=== PATIENT | male | born 1945 | race Caucasian/White ===

== ENCOUNTER 2020-02-08 22:14 | Inpatient (IN) | payer MEDICARE, BC ==
[~2020-02-08] VITALS: Ht 167.6 cm; Wt 80.7 kg
[2020-02-08 23:23] VITALS: BP 142/68
[2020-02-08] MEDS ORDERED: FINA5TAB11 PO (23:25)
[2020-02-08] MEDS ORDERED: SIMV-49 PO (23:25)
[2020-02-08] MEDS ORDERED: CARV12.52 PO (23:25)
[2020-02-08] MEDS ORDERED: ALLO300T2 PO (23:25)
[2020-02-08] MEDS ORDERED: OLME20TA13 PO (23:25)
[2020-02-08] MEDS ORDERED: DONE10TA44 PO (23:25)
[2020-02-08] MEDS ORDERED: ENOX40DI SQ (23:25)
[2020-02-08] MEDS ORDERED: TERA5CAP4 PO (23:25)
[2020-02-08] MEDS ORDERED: WARF7.5T23 PO (23:25)
[2020-02-08] MEDS ORDERED: POTA10CA43 PO (23:25)
[2020-02-08] MEDS ORDERED: FURO-151 PO (23:25)
[2020-02-08] MEDS ORDERED: LEVO50TA8 PO (23:25)
[2020-02-08] MEDS ORDERED: ESOM40CA PO (23:25)
[2020-02-08] MEDS ORDERED: ALPR1TAB7 PO (23:25)
[2020-02-08] MEDS ORDERED: [UNRECOGNIZED DRUG - CODE] PO (23:25)
--- NOTE | 2020-02-08 23:30 | NUR ---
Pt arrived in the unit at 2106 via gurney from [facility]. VSS. AAO x3-4. Admitting diagnosis: TIA, gen weakness. On 2L O2 via NC. No acute distress noted. Denies pain/ discomfort. Facial droop and slurred speech noted. NIHSS done. Pertinent assessment done. Skin intact. No redness noted. MRSA sent to the lab. Pt has own med, will bring to pharmacy tomorrow morning. Oriented pt to the room and use of call light. Notified Dr. Fregoso of admission. Dr. Solis also notified and asked for med recon, awaiting med recon. Safety measures maintained. Call light and personal items within reach. Will continue to monitor.
[2020-02-09 05:27] VITALS: BP 124/71
[2020-02-09 08:00] VITALS: BP 145/67
--- NOTE | 2020-02-09 13:28 | NUR ---
INDIVIDUALIZED PLAN OF CARE
[2020-02-09 14:52] LABS: BASOPHILS % (AUTO) 0.4 % (0.0-2.0); EOSINOPHILS % (AUTO) 0.4 % (0.0-7.0); HEMOGLOBIN 10.6 g/dL (12.5-16.3); LYMPHOCYTES # (AUTO) 1.1 K/uL (20.0-40.0); LYMPHOCYTES % (AUTO) 12.1 % (20.5-51.5); MEAN CORPUSCULAR HEMOGLOBIN 27.2 uug (23.8-33.4); MEAN CORPUSCULAR HGB CONC 31 g/dL (32.5-36.3); MEAN CORPUSCULAR VOLUME 87.1 fL (73.0-96.2); MONOCYTES # (AUTO) 1.2 K/uL (2.0-10.0); NEUTROPHILS # (AUTO) 6.8 K/uL (1.8-8.9); NEUTROPHILS % (AUTO) 74.1 % (38.5-71.5); PLATELET COUNT (AUTO) 251 K/uL (152-348); WHITE BLOOD COUNT (AUTO) 9.1 K/uL (3.6-10.2)
[2020-02-09 16:00] VITALS: BP 118/61
[2020-02-09] MEDS: CARVEDILOL 12.5 MG TABLET PO SCH (17:11)
[2020-02-09] MEDS: FUROSEMIDE 40 MG TABLET PO SCH (17:12)
[2020-02-09] MEDS: TERAZOSIN 5 MG CAPSULE PO SCH (17:12)
[2020-02-09] MEDS: POTASSIUM CHLORIDE 10 MEQ TAB.PRT.SR PO SCH (17:12)
[2020-02-09 20:17] VITALS: BP 120/60
[2020-02-09] MEDS: ALPRAZOLAM 0.5 MG TABLET PO PRN (20:49)
--- NOTE | 2020-02-09 20:55 | NUR ---
Received pt resting in bed. AAO x3-4. On 2L O2 via NC. No acute distress noted. Denies pain/ discomfort. Due meds given as ordered. Pt requested for his Xanax, given and pt tolerated well. Turned and repositioned. Both heels offloaded. Safety measures maintained. Call light and personal items within reach. Will continue to monitor.
[2020-02-09] MEDS ORDERED: ENOXAPARIN SODIUM 40 MG/0.4 ML DISP.SYRIN SQ SCH (21:00)
[2020-02-09] MEDS ORDERED: SIMVASTATIN 40 MG TABLET PO SCH (21:00)
[2020-02-10] MEDS: ALPRAZOLAM 0.5 MG TABLET PO PRN (01:21)
[2020-02-10 06:14] LABS: BASOPHILS % (AUTO) 0.4 % (0.0-2.0); EOSINOPHILS # (AUTO) 0.1 K/uL (0.0-0.7); EOSINOPHILS % (AUTO) 1.4 % (0.0-7.0); HEMATOCRIT 32.8 % (36.7-47.1); HEMOGLOBIN 10.5 g/dL (12.5-16.3); LYMPHOCYTES % (AUTO) 12.4 % (20.5-51.5); MEAN CORPUSCULAR HEMOGLOBIN 27.6 uug (23.8-33.4); MEAN CORPUSCULAR HGB CONC 32 g/dL (32.5-36.3); MEAN CORPUSCULAR VOLUME 86.5 fL (73.0-96.2); MONOCYTES # (AUTO) 1.1 K/uL (2.0-10.0); MONOCYTES % (AUTO) 13.4 % (0.0-11.0); NEUTROPHILS # (AUTO) 5.7 K/uL (1.8-8.9); NEUTROPHILS % (AUTO) 72.4 % (38.5-71.5); PLATELET COUNT (AUTO) 234 K/uL (152-348); RED BLOOD CELL COUNT(AUTO) 3.79 MIL/uL (4.06-5.63); WHITE BLOOD COUNT (AUTO) 7.8 K/uL (3.6-10.2)
[2020-02-10 06:26] LABS: CREATININE 0.8 mg/dL (0.6-1.3); POTASSIUM 3.6 mmol/L (3.5-5.1)
[2020-02-10 06:29] LABS: IRON, SERUM 33 ug/dL (50-175)
[2020-02-10 06:41] VITALS: BP 130/48
[2020-02-10 06:41] LABS: FERRITIN 402 ng/mL (26-388)
[2020-02-10 08:00] VITALS: BP 137/69
--- NOTE | 2020-02-10 08:10 | NUR ---
Received patient in room, awake patient was being transferred to radiobiology for bone scan. patient AAO x 3-4, with episodes of forgetfulness. on O2NC at 2lpm for SOB. Patient assisted to w/c and left to radiology.
[2020-02-10] MEDS ORDERED: WARFARIN SODIUM 7.5 MG TABLET PO SCH (09:00)
[2020-02-10] MEDS ORDERED: DONEPEZIL 10 MG TABLET PO SCH (09:00)
[2020-02-10] MEDS ORDERED: LEVOTHYROXINE SODIUM 50 MCG TABLET PO SCH (09:00)
[2020-02-10] MEDS ORDERED: ALLOPURINOL 300 MG TABLET PO SCH (09:00)
[2020-02-10] MEDS ORDERED: FINASTERIDE 5 MG TABLET PO SCH (09:00)
[2020-02-10] MEDS: CARVEDILOL 12.5 MG TABLET PO SCH (09:00)
[2020-02-10] MEDS ORDERED: LOSARTAN POTASSIUM 50 MG TABLET PO SCH (09:00)
[2020-02-10] MEDS ORDERED: ENOXAPARIN SODIUM 80 MG/0.8 ML DISP.SYRIN SQ SCH (09:00)
[2020-02-10] MEDS ORDERED: VENLAFAXINE XR 37.5 MG CAP.SR.24H PO SCH (09:00)
[2020-02-10] MEDS ORDERED: PANTOPRAZOLE SODIUM 40 MG TABLET.DR PO SCH (09:00)
[2020-02-10] MEDS ORDERED: ACETAMINOPHEN 325 MG TABLET PO PRN (09:45)
[2020-02-10] MEDS: FUROSEMIDE 40 MG TABLET PO SCH (09:56)
[2020-02-10] MEDS: TERAZOSIN 5 MG CAPSULE PO SCH (10:01)
[2020-02-10] MEDS: POTASSIUM CHLORIDE 10 MEQ TAB.PRT.SR PO SCH (10:02)
[2020-02-10 10:04] VITALS: BP 137/69
--- NOTE | 2020-02-10 10:10 | NUR ---
Patient administered Lasix 40mg PO as ordered and scheduled and Tylenol 650mg 2 tabs PRN for generalized pain and tolerated.
--- NOTE | 2020-02-10 10:15 | NUR ---
patient stated he was feeling short of breath after getting back from procedure. Patient noted using his accessory muscles when breathing. Checked O2 and 96-97% at 2lpm but patient still complained of SOB; denies any chest pain. Informed Vanessa Craig NP and COUNTY NURSE stated patient will be seen by Dr. Lo. Patient monitored closely and safety measures in place.
--- NOTE | 2020-02-10 10:20 | NUR ---
Patient seen by Dr. Lo and with an order to place patient as TELE. ARTIFICIAL LIMB FITTER and RN fish processing supervisor aware.
[2020-02-10] MEDS ORDERED: FUROSEMIDE 40 MG/4 ML VIAL IV ONE (11:00)
--- NOTE | 2020-02-10 12:37 | NUR ---
Patient in bed and in NO acute distress. Patient stated he is feeling much better after receiving IV Lasix as ordered. Patient noted with 750cc clear urine output. NO c/o pain and SOB at this time. Vital signs stable and will continue with care.
--- NOTE | 2020-02-10 12:51 | NUR ---
pt in higher level of care at this time from ARU to TELE, PT tx on HOLD.
[2020-02-10] MEDS ORDERED: FURO-151 IV ×2 (16:03→16:07)
[2020-02-10] MEDS ORDERED: LOSA50TA39 PO (16:08)
[2020-02-10] MEDS ORDERED: PANT40TA2 PO (16:11)
[2020-02-10] MEDS ORDERED: FUROSEMIDE 40 MG/4 ML VIAL IV SCH (17:00)
[2020-02-11] MEDS ORDERED: LOSARTAN POTASSIUM 50 MG TABLET PO SCH (09:00)
[2020-02-11 09:27] LABS: *OCCULT BLOOD STOOL NEGATIVE (NEGATIVE)
--- NOTE | 2020-02-11 14:51 | NUR ---
SW Note: Spoke with Charge Nurse Cassie regarding psychiatry consultation, however, was informed that the patient was transferred to CCU at this time. SW will continue to follow up with patient's status.
[2020-02-17] MEDS ORDERED: HYDR-4384 PO (09:30)
[2020-02-17] MEDS ORDERED: FLUO20CA36 PO (09:38)
== END 2020-02-10 12:40 | disposition short-term general hospital (02) | DRG 56 ==
LOC: TELE3 22:14 → UNDOADMIN 22:14 → MEDSURG3 22:14
PROVIDERS: ADMIT Physical Medicine & Rehabilitation Pain Medicine; ATTEND Physical Medicine & Rehabilitation Pain Medicine
DX: I69.828 Other speech and language deficits following other cerebrovascular disease (principal); J96.00 Acute respiratory failure, unspecified whether with hypoxia or hypercapnia; I50.33 Acute on chronic diastolic (congestive) heart failure; C81.90 Hodgkin lymphoma, unspecified, unspecified site; I48.92 Unspecified atrial flutter; I69.892 Facial weakness following other cerebrovascular disease; G93.89 Other specified disorders of brain; R53.1 Weakness; Z85.118 Personal history of other malignant neoplasm of bronchus and lung; D63.8 Anemia in other chronic diseases classified elsewhere; E03.9 Hypothyroidism, unspecified; E66.9 Obesity, unspecified; I48.0 Paroxysmal atrial fibrillation; E78.5 Hyperlipidemia, unspecified; G47.33 Obstructive sleep apnea (adult) (pediatric); I05.0 Rheumatic mitral stenosis; I11.0 Hypertensive heart disease with heart failure; I25.10 Atherosclerotic heart disease of native coronary artery without angina pectoris; K21.9 Gastro-esophageal reflux disease without esophagitis; K44.9 Diaphragmatic hernia without obstruction or gangrene; K76.9 Liver disease, unspecified; N20.0 Calculus of kidney; N40.0 Benign prostatic hyperplasia without lower urinary tract symptoms; Z95.1 Presence of aortocoronary bypass graft; Z95.3 Presence of xenogenic heart valve; Z95.5 Presence of coronary angioplasty implant and graft
CPT/HCPCS: 36415; 71045; 78306; 83550; 85025; 85610; 85730; 93005; 93307; A9503; J1650; J1940; J7050

== ENCOUNTER 2020-02-10 12:19 | Inpatient (IN) | payer MEDICARE, BC ==
[~2020-02-10] VITALS: Ht 170.2 cm; Wt 78.5 kg
[~2020-02-10 12:19] MED LIST: ALLO300T2 PO; ALPR1TAB7 PO; CARV12.52 PO; DONE10TA44 PO; ENOX40DI SQ; ESOM40CA PO; FINA5TAB11 PO; FURO-151 PO; LEVO50TA8 PO; OLME20TA13 PO; POTA10CA43 PO; SIMV-49 PO; TERA5CAP4 PO; WARF7.5T23 PO; [UNRECOGNIZED DRUG - CODE] PO
--- NOTE | 2020-02-10 14:45 | NUR ---
Admitted 74 year old male patient from ARU. Pt. is AAO X 3-4, no sob noted at this time. patient on TELE monitor. Vital signs stable at this time. O2 saturation of 95% on O2 NC at 2lpm. Skin kept clean and dry. Needs attended, safety measures in place and will continue with care.
[2020-02-10] MEDS ORDERED: FURO-151 IV ×2 (16:03→16:07)
[2020-02-10] MEDS ORDERED: LOSA50TA39 PO (16:08)
[2020-02-10] MEDS ORDERED: PANT40TA2 PO (16:11)
[2020-02-10] MEDS: FUROSEMIDE 40 MG/4 ML VIAL IV SCH (17:52)
--- NOTE | 2020-02-10 18:56 | NUR ---
Medications reconciled by Dr. Solis. Due medications administered. IV Lasix administered as ordered. PICC line on right upper arm with 3 lumens intact and patent. NO SOB noted at this time. Monitored closely. Skin kept clean and dry, made comfortable and will continue with care.
--- NOTE | 2020-02-10 19:30 | NUR ---
RECEIVED PT IN NO ACUTE DISTRESS. IV INTACT. PT ON 2L NASAL CANNULA. SAFETY AND COMFORT PROVIDED. WILL CONTINUE TO MONITOR.
--- NOTE | 2020-02-10 19:45 | NUR ---
End of shift report given to pm nurse.
[2020-02-10 20:13] VITALS: BP 100/64
[2020-02-10] MEDS: ALPRAZOLAM 0.5 MG TABLET PO PRN (20:49)
[2020-02-10] MEDS: SIMVASTATIN 40 MG TABLET PO SCH (20:49)
[2020-02-10] MEDS: ENOXAPARIN SODIUM 80 MG/0.8 ML DISP.SYRIN SQ SCH (20:51)
[2020-02-10] MEDS: TERAZOSIN 5 MG CAPSULE PO SCH (20:59)
--- NOTE | 2020-02-10 22:00 | NUR ---
PT DAUGHTER FAX THE ADVANCE DIRECTIVE. CALLED THE PT DAUGHTER TO UPDATE HER THAT WE RECEIVED IT.
[2020-02-11] VITALS (45 sets, daily range): BP systolic 72–132; BP diastolic 35–89
[2020-02-11] MEDS: ACETAMINOPHEN 325 MG TABLET PO PRN ×2 (05:10→19:42)
--- NOTE | 2020-02-11 05:58 | NUR ---
PT SLEPT INTERMITTENTLY. PT IN NO ACUTE DISTRESS. IV INTACT. PRESCRIBED MEDICATION GIVEN AND PT TOLERATED IT WELL. XANAX PRN GIVEN [id number] FOR ANXIETY PER PT REQUEST. PT TOLERATED IT WELL. AT FIRST PT ASK FOR XANAX REACCESS THE PT AND TOLD HIM HE CAN ONLY THE XANAX TWICE A DAY. PT NOT FEEL ANXIOUS. RETURN THE TIGIST TO RETURN BIN WITH ANOTHER RN WITNESS. PT ASK FOR TYLENOL. GIVEN TYLENOL AT 0510. PT TOLERATED IT WELL. TOOK BLOOD FROM PICC LINE. 2 LUMEN WORKING WELL, PURPLE LUMEN NOT WORKING. SAFETY AND COMFORT PROVIDED. ALL NEEDS ARE MET. WILL ENDORSE TO INCOMING NURSE FOR CONTINUITY OF CARE.
[2020-02-11 06:34] LABS: BASOPHILS % (AUTO) 0.5 % (0.0-2.0); EOSINOPHILS # (AUTO) 0.1 K/uL (0.0-0.7); EOSINOPHILS % (AUTO) 1.8 % (0.0-7.0); HEMATOCRIT 33.2 % (36.7-47.1); HEMOGLOBIN 10.5 g/dL (12.5-16.3); LYMPHOCYTES # (AUTO) 0.9 K/uL (20.0-40.0); MEAN CORPUSCULAR HEMOGLOBIN 27.4 uug (23.8-33.4); MEAN CORPUSCULAR HGB CONC 32 g/dL (32.5-36.3); MEAN CORPUSCULAR VOLUME 86.4 fL (73.0-96.2); MONOCYTES % (AUTO) 13.1 % (0.0-11.0); NEUTROPHILS # (AUTO) 5.4 K/uL (1.8-8.9); NEUTROPHILS % (AUTO) 72.6 % (38.5-71.5); PLATELET COUNT (AUTO) 209 K/uL (152-348); RED BLOOD CELL COUNT(AUTO) 3.84 MIL/uL (4.06-5.63); WHITE BLOOD COUNT (AUTO) 7.4 K/uL (3.6-10.2)
[2020-02-11] MEDS: LEVOTHYROXINE SODIUM 50 MCG TABLET PO SCH (06:36)
[2020-02-11 06:54] LABS: BILIRUBIN,TOTAL 0.6 mg/dL (0.2-1.0); CREATININE 0.9 mg/dL (0.6-1.3); PHOSPHOROUS 2.7 mg/dL (2.5-4.9); POTASSIUM 3.2 mmol/L (3.5-5.1); TOTAL PROTEIN, SERUM 6.3 g/dL (6.4-8.2); URIC ACID 2.8 mg/dL (3.5-7.2)
--- NOTE | 2020-02-11 07:30 | NUR ---
CALLED CIA AGENT REGARDING CRITICAL LAB OF CO2=40. WAITING FOR CALL BACK. ENDORSE TO INCOMING NURSE.
--- NOTE | 2020-02-11 07:41 | NUR ---
Spoke to Mal Wynne NP for critical result CO2 - 40. No new orders, will come and see patient.
[2020-02-11] MEDS ORDERED: LOSARTAN POTASSIUM 50 MG TABLET PO SCH (09:00)
[2020-02-11] MEDS ORDERED: CARVEDILOL 12.5 MG TABLET PO SCH (09:00)
[2020-02-11 09:01] LABS: THYROID STIMULATING HORMONE 2.795 mIU/mL (0.358-3.740)
[2020-02-11] MEDS: TERAZOSIN 5 MG CAPSULE PO SCH ×2 (09:06→21:06)
[2020-02-11] MEDS: POTASSIUM CHLORIDE 10 MEQ TAB.PRT.SR PO SCH ×2 (09:06→17:30)
[2020-02-11] MEDS: PANTOPRAZOLE SODIUM 40 MG TABLET.DR PO SCH (09:08)
[2020-02-11] MEDS: FINASTERIDE 5 MG TABLET PO SCH (09:08)
[2020-02-11] MEDS: DONEPEZIL 10 MG TABLET PO SCH (09:09)
[2020-02-11] MEDS: ENOXAPARIN SODIUM 80 MG/0.8 ML DISP.SYRIN SQ SCH ×2 (09:12→21:06)
[2020-02-11] MEDS: FUROSEMIDE 40 MG/4 ML VIAL IV SCH (09:12)
[2020-02-11] MEDS: VENLAFAXINE XR 37.5 MG CAP.SR.24H PO SCH (09:12)
[2020-02-11] MEDS ORDERED: ATROPINE SULFATE 1 MG/10 ML DISP.SYRIN IV ONE ×2 (11:49→14:45)
--- NOTE | 2020-02-11 13:11 | NUR ---
Pt's HR decreased to 40, pt asleep. Tried to wake pt up but still somnolent and would go back to sleep. Checked BP- 74/39. Placed pt on trendelenburg position. Monitored patient.
--- NOTE | 2020-02-11 13:24 | NUR ---
Called Dr. Lo and updated on pt's persistent low Bp and HR. Ordered to give IV NS 250mL bolus.
[2020-02-11] MEDS ORDERED: IV NORMAL SALINE 250 ML IV ONE ×2 (13:30→14:45)
--- NOTE | 2020-02-11 13:40 | NUR ---
Pt's BP and HR remained to be low and pt still somnolent. INTER COM INSTALLER called
--- NOTE | 2020-02-11 14:10 | NUR ---
IV NS 250mL bolus done. Rechecked v/s. BP 92/48, HR 51
--- NOTE | 2020-02-11 14:45 | NUR ---
Dr. Lo at bedside for assessment. Updates given. MD ordered atropine IV x1 dose now, another 250 mL NS bolus, transfer to CCU and start dopamine drip to keep HR >55 or SBP >100, see orders.
--- NOTE | 2020-02-11 15:00 | NUR ---
Pt's BP improved 113/59, HR 57 after atropine administration but HR remained low. Dr. Lo at bedside ordered to transfer to CCU. Pt stated that he feels tired and he still appears somnolent. Report given to Whitney Grider RN.
--- NOTE | 2020-02-11 15:00 | NUR ---
RECIEVED PT FROM TELEMETRY VIA BED, A 76YO MALE WITH A CHIEF C/O HYPOTENSION AND BRADYCARDIA. AWAKE AND ORIENTEDX3. DENIES ANY CHEST PAINS. HR IS AFIB AFLUTTER WITN CONTROLLED VR. MOVES ALL EXPTRMETIES WELLLL.
[2020-02-11 15:11] LABS: ABG BASE EXCESS 13.4 mmol/L; ABG HCO3 39.2 mmol/L; ABG PH 7.463 (7.350-7.450); ABG PO2 116.3 mmHg (75.0-100.0); ABG SITE LEFT RADIAL; ABG TOTAL HEMOGLOBIN 11.3 G/dL (13.5-18.0); COHb 1.1 % (0.5-1.5); MetHb 0.3 % (0.0-1.5); O2Hb 97.2 % (94.0-97.0); VENT MODE Nasal Cannula
--- NOTE | 2020-02-11 15:30 | NUR ---
STARTED DOPAMINE DRIP AT 5MCK/KG/MIN TO INCREASE HR AND BP VIA PICC LINE JESSENIA.
[2020-02-11] MEDS: DOPamine IV DRIP 400 MG/250ML 250 ML IV PRN (15:36)
[2020-02-11] MEDS: POTASSIUM CHLORIDE 50 ML IV SCH ×4 (16:29→20:23)
--- NOTE | 2020-02-11 17:30 | NUR ---
SEEN AND EXAMINED BY DR ANDRADE WITH NEW ORDERS.
[2020-02-11] MEDS: WARFARIN SODIUM 7.5 MG TABLET PO SCH (17:33)
[2020-02-11] MEDS: ALPRAZOLAM 0.5 MG TABLET PO PRN (19:37)
--- NOTE | 2020-02-11 20:00 | NUR ---
RECEIVED PT AWAKE, ALERT & ORIENTED X3. ON O2 @ 2LNC W/ O2 SAT OF 96%. ON DOPAMINE DRIP @ 3MCQ/KG/MIN ON JESSENIA TLC. BP IS LOW 78/51, INCREASED DOPAMINE DRIP TO 5MCQ/KG/MIN. VOIDING USES URINAL ADEQ. AMT. C-SCOPE A-FLUTTER 2:1 BLOCK. REPOSITIONED ON HIS SIDE W/ HOB ELEVATED.
[2020-02-11] MEDS ORDERED: SIMVASTATIN 40 MG TABLET ONE (21:01)
[2020-02-11] MEDS ORDERED: TERAZOSIN 5 MG CAPSULE ONE (21:01)
[2020-02-11] MEDS: SIMVASTATIN 40 MG TABLET PO SCH (21:06)
[2020-02-11] MEDS: ONDANSETRON 4 MG/2 ML VIAL IV PRN (21:46)
--- NOTE | 2020-02-11 21:46 | NUR ---
C/O NAUSEA, MEDICATED W/ ZOFRAN 4MG IVP ORDERED.
--- NOTE | 2020-02-11 23:00 | NUR ---
HS CARE DONE, BEDBATH . REPOSITIONED PT ON HIS SIDE W/ HOB ELEVATED.
[2020-02-12] VITALS (89 sets, daily range): BP systolic 80–145; BP diastolic 35–78
[2020-02-12] MEDS: ACETAMINOPHEN 325 MG TABLET PO PRN ×3 (01:37→20:08)
[2020-02-12 05:07] LABS: BASOPHILS % (AUTO) 0.6 % (0.0-2.0); EOSINOPHILS # (AUTO) 0.1 K/uL (0.0-0.7); EOSINOPHILS % (AUTO) 0.7 % (0.0-7.0); HEMATOCRIT 33.2 % (36.7-47.1); HEMOGLOBIN 10.8 g/dL (12.5-16.3); LYMPHOCYTES # (AUTO) 0.8 K/uL (20.0-40.0); LYMPHOCYTES % (AUTO) 10.4 % (20.5-51.5); MEAN CORPUSCULAR HEMOGLOBIN 27.8 uug (23.8-33.4); MEAN CORPUSCULAR HGB CONC 33 g/dL (32.5-36.3); MEAN CORPUSCULAR VOLUME 85.4 fL (73.0-96.2); MONOCYTES # (AUTO) 0.6 K/uL (2.0-10.0); MONOCYTES % (AUTO) 8.3 % (0.0-11.0); NEUTROPHILS # (AUTO) 6.1 K/uL (1.8-8.9); PLATELET COUNT (AUTO) 242 K/uL (152-348); RED BLOOD CELL COUNT(AUTO) 3.88 MIL/uL (4.06-5.63); WHITE BLOOD COUNT (AUTO) 7.6 K/uL (3.6-10.2)
[2020-02-12 05:15] LABS: CREATININE 0.8 mg/dL (0.6-1.3); PHOSPHOROUS 3.3 mg/dL (2.5-4.9); POTASSIUM 3.9 mmol/L (3.5-5.1)
--- NOTE | 2020-02-12 05:51 | NUR ---
SKIN CARE DONE. REPOSITIONED W/ HOB ELEVATED.
[2020-02-12] MEDS: LEVOTHYROXINE SODIUM 50 MCG TABLET PO SCH (06:30)
[2020-02-12] MEDS: DOPamine IV DRIP 400 MG/250ML 250 ML IV PRN (07:28)
[2020-02-12] MEDS: PANTOPRAZOLE SODIUM 40 MG TABLET.DR PO SCH (08:00)
[2020-02-12] MEDS: VENLAFAXINE XR 37.5 MG CAP.SR.24H PO SCH (08:00)
[2020-02-12] MEDS: POTASSIUM CHLORIDE 10 MEQ TAB.PRT.SR PO SCH ×2 (08:00→18:22)
[2020-02-12] MEDS: FINASTERIDE 5 MG TABLET PO SCH (08:00)
[2020-02-12] MEDS: ENOXAPARIN SODIUM 80 MG/0.8 ML DISP.SYRIN SQ SCH (08:03)
[2020-02-12] MEDS: DONEPEZIL 10 MG TABLET PO SCH (08:30)
[2020-02-12] MEDS: TERAZOSIN 5 MG CAPSULE PO SCH ×2 (08:38→20:08)
--- NOTE | 2020-02-12 08:48 | NUR ---
Attending physician Dr. Gardner in the unit to see and examine patient, full report given orders received see order hx.
--- NOTE | 2020-02-12 10:30 | NUR ---
Cardiology services, Dr. Lo orders received.
--- NOTE | 2020-02-12 10:36 | NUR ---
with Dr. vu still in the unit as per learning technologies specialist procedure unable to be done here only at [facility]. Dr. estrada.
--- NOTE | 2020-02-12 11:52 | NUR ---
Assessment was done and documented on 02/10 under ARU account. Changes made 02/11 under different account since patient has been transferred. Addendum: 02/12/20 at 1154 by MORENA OROURKE Amended: Links added.
[2020-02-12] MEDS ORDERED: IV NORMAL SALINE 500 ML IV ONE (15:00)
--- NOTE | 2020-02-12 15:00 | NUR ---
A call to cardiology services, Dr. Lo called to be notified of low sbp 1 hours post drip been stopped. orders for 500 NS bolus and to resume dopamine drip. Orders implemented.
[2020-02-12] MEDS: ALPRAZOLAM 0.5 MG TABLET PO PRN ×3 (15:18→22:08)
--- NOTE | 2020-02-12 15:30 | NUR ---
patient with c/of anxiety and requesting xanax for the 2nd time after refusing to take one dose previously. At this time also with c/of sob. s and tachypnea noted pt.
--- NOTE | 2020-02-12 16:00 | NUR ---
Saw Handle Assembler called to be notified that at this time patient placed on face mask 10 liters due to desaturation down to 87-88. which improved after mask. 1630 call returned and orders received.
[2020-02-12 16:59] LABS: *OCCULT BLOOD STOOL NEGATIVE (NEGATIVE)
[2020-02-12] MEDS: WARFARIN SODIUM 7.5 MG TABLET PO SCH (18:22)
--- NOTE | 2020-02-12 18:40 | NUR ---
left pt. in bed. On nasal canula 2 liter saturation of 96%, Hr of 100 with sbp of 126/69. Dopamine down to 3mcg/kg/min. Patient remains with c/o sob ABG orders. Incoming R.N. to follow up with care plan.
[2020-02-12 19:08] LABS: ABG BASE EXCESS 8.6 mmol/L; ABG HCO3 37.1 mmol/L; ABG PCO2 73.1 mmHg (35.0-45.0); ABG PH 7.323 (7.350-7.450); ABG PO2 83.4 mmHg (75.0-100.0); ABG SITE RIGHT RADIAL; MetHb 0.2 % (0.0-1.5); O2Hb 94.8 % (94.0-97.0); VENT MODE Nasal Cannula
--- NOTE | 2020-02-12 20:00 | NUR ---
RECEIVED PT VERBALLY RESPONSIVE, W/ PERIODS OF FORGETFULNESS, FOLLOWS TO COMMAND. CALLED Steph WAITE FOR ABG RESULTS W/ ORDER TO PLACE ON O2 2LNC , ABG @ 2130 ,W/ O2 SAT OF 91%. ON DOPAMINE DRIP @ 3MCQ/KG/MIN VIA PICC LINE ON JESSENIA. C-SCOPE A-FLUTTER 2;1 BLOCK. C/O HEADACHE, TYLENOL 650MG PO. REPOSITIONED W/ HOB ELEVATED.
[2020-02-12] MEDS: SIMVASTATIN 40 MG TABLET PO SCH (20:07)
[2020-02-12 21:45] LABS: ABG BASE EXCESS 7.2 mmol/L; ABG HCO3 35.2 mmol/L; ABG PH 7.326 (7.350-7.450); ABG PO2 67.8 mmHg (75.0-100.0); ABG SITE RIGHT RADIAL; ABG TOTAL HEMOGLOBIN 11.9 G/dL (13.5-18.0); COHb 1.4 % (0.5-1.5); MetHb 0.3 % (0.0-1.5); O2Hb 90.2 % (94.0-97.0); VENT MODE Nasal Cannula
--- NOTE | 2020-02-12 23:00 | NUR ---
REPOSITIONED W/ HOB ELEVATED. DENIES PAIN THIS TIME.
[2020-02-13] VITALS (96 sets, daily range): BP systolic 79–142; BP diastolic 36–81
[2020-02-13] MEDS ORDERED: MORPHINE SULFATE 2 MG/1 ML DISP.SYRIN ONE (03:57)
--- NOTE | 2020-02-13 05:00 | NUR ---
AM CARE DONE. ORAL CARE DONE.. REPOSITIONED W/ HOB ELEVATED. NOT IN ANY DISTRESS.
[2020-02-13 05:15] LABS: BASOPHILS % (AUTO) 0.4 % (0.0-2.0); EOSINOPHILS # (AUTO) 0.1 K/uL (0.0-0.7); HEMATOCRIT 35.4 % (36.7-47.1); HEMOGLOBIN 11.4 g/dL (12.5-16.3); LYMPHOCYTES # (AUTO) 0.8 K/uL (20.0-40.0); LYMPHOCYTES % (AUTO) 7.3 % (20.5-51.5); MEAN CORPUSCULAR HEMOGLOBIN 27.7 uug (23.8-33.4); MEAN CORPUSCULAR HGB CONC 32 g/dL (32.5-36.3); MONOCYTES # (AUTO) 0.6 K/uL (2.0-10.0); MONOCYTES % (AUTO) 5.5 % (0.0-11.0); NEUTROPHILS # (AUTO) 9.7 K/uL (1.8-8.9); NEUTROPHILS % (AUTO) 85.8 % (38.5-71.5); PLATELET COUNT (AUTO) 234 K/uL (152-348); RED BLOOD CELL COUNT(AUTO) 4.11 MIL/uL (4.06-5.63); WHITE BLOOD COUNT (AUTO) 11.3 K/uL (3.6-10.2)
[2020-02-13 05:16] LABS: CREATININE 0.9 mg/dL (0.6-1.3); MAGNESIUM 2.3 mg/dL (1.8-2.4); PHOSPHOROUS 3.4 mg/dL (2.5-4.9); POTASSIUM 4.1 mmol/L (3.5-5.1)
[2020-02-13] MEDS: LEVOTHYROXINE SODIUM 50 MCG TABLET PO SCH (06:31)
--- NOTE | 2020-02-13 07:45 | NUR ---
PULMONARY SERVICES DR. HERRERA IN THE UNIT, FULL REPORT GIVEN TO DR. HERRERA. SEE ORDER HISTORY FOR NEW ORDERS. DR. HERRERA ASSESSING AND DISCUSSING PLAN OF CARE WITH PATIENT.
--- NOTE | 2020-02-13 08:00 | NUR ---
CARDIOLOGY SERVICES DR. ANDRADE IN THE UNIT, FULL REPORT GIVEN TO DR. ANDRADE. SEE ORDER HISTORY FOR NEW ORDERS. DR. ANDRADE AT BEDSIDE ASSESSING AND DISCUSSING PLAN OF CARE WITH THE PATIENT.
[2020-02-13] MEDS: DOPamine IV DRIP 400 MG/250ML 250 ML IV PRN (08:10)
--- NOTE | 2020-02-13 08:15 | NUR ---
ATTENDING PHYSICIAN DR. FORD IN THE UNIT, FULL REPORT GIVEN TO DR. FORD. SEE ORDER HISTORY FOR NEW ORDERS.
[2020-02-13] MEDS ORDERED: IPRATROPIUM BROMIDE 0.5 MG/2.5 ML NEBU NEB PRN (08:45)
[2020-02-13] MEDS ORDERED: LEVALBUTEROL HCL NEB 0.63 MG/3 ML NEBU NEB PRN (08:45)
[2020-02-13] MEDS: DONEPEZIL 10 MG TABLET PO SCH (09:19)
[2020-02-13] MEDS: VENLAFAXINE XR 37.5 MG CAP.SR.24H PO SCH (09:19)
[2020-02-13] MEDS: TERAZOSIN 5 MG CAPSULE PO SCH ×2 (09:20→21:23)
[2020-02-13] MEDS: POTASSIUM CHLORIDE 10 MEQ TAB.PRT.SR PO SCH ×2 (09:20→17:00)
[2020-02-13] MEDS: PANTOPRAZOLE SODIUM 40 MG TABLET.DR PO SCH (09:20)
[2020-02-13] MEDS: FINASTERIDE 5 MG TABLET PO SCH (09:20)
[2020-02-13] MEDS: ACETAzolamide SODIUM 500 MG VIAL IV SCH (09:21)
[2020-02-13] MEDS: ACETAMINOPHEN 325 MG TABLET PO PRN (10:45)
--- NOTE | 2020-02-13 13:00 | NUR ---
CT scan unable to be done due to patient getting SOB while laying flat.
[2020-02-13] MEDS: IPRATROPIUM BROMIDE 0.5 MG/2.5 ML NEBU NEB SCH ×2 (14:01→20:15)
[2020-02-13] MEDS: LEVALBUTEROL HCL NEB 0.63 MG/3 ML NEBU NEB SCH ×2 (14:01→20:15)
--- NOTE | 2020-02-13 14:10 | NUR ---
Patient stated that he wants to be placed on "comfort care, i want to in peace free of pain". Contacted Dr. Gardner and addressed patients wishes. Dr. Gardner stated he will contact daughter to address the situation.
[2020-02-13] MEDS: MORPHINE SULFATE 2 MG/1 ML DISP.SYRIN IV PRN (14:54)
[2020-02-13] MEDS: ONDANSETRON 4 MG/2 ML VIAL IV PRN (15:08)
[2020-02-13] MEDS: WARFARIN SODIUM 7.5 MG TABLET PO SCH (17:00)
--- NOTE | 2020-02-13 17:00 | NUR ---
Talked to Dr. Gardner via telephone, Dr Gardner states patient is not in the state of being put on morphine drip due to his mentation. Jj stated to remain on pressor but not to titrate up if needed, and will talk to the patient tomorrow in the AM.
[2020-02-13] MEDS: SIMVASTATIN 40 MG TABLET PO SCH (21:22)
[2020-02-13] MEDS: ALPRAZOLAM 0.5 MG TABLET PO PRN (21:24)
[2020-02-14] VITALS (95 sets, daily range): BP systolic 84–129; BP diastolic 40–93
[2020-02-14] MEDS: IPRATROPIUM BROMIDE 0.5 MG/2.5 ML NEBU NEB SCH ×4 (01:30→19:42)
[2020-02-14] MEDS: LEVALBUTEROL HCL NEB 0.63 MG/3 ML NEBU NEB SCH ×4 (01:30→19:42)
[2020-02-14 05:30] LABS: CREATININE 0.9 mg/dL (0.6-1.3); MAGNESIUM 2.3 mg/dL (1.8-2.4); PHOSPHOROUS 2.7 mg/dL (2.5-4.9); POTASSIUM 3.6 mmol/L (3.5-5.1)
[2020-02-14 05:37] LABS: BASOPHILS % (AUTO) 0.4 % (0.0-2.0); EOSINOPHILS # (AUTO) 0.2 K/uL (0.0-0.7); EOSINOPHILS % (AUTO) 2.3 % (0.0-7.0); HEMATOCRIT 32.8 % (36.7-47.1); HEMOGLOBIN 10.5 g/dL (12.5-16.3); LYMPHOCYTES # (AUTO) 0.9 K/uL (20.0-40.0); LYMPHOCYTES % (AUTO) 9.1 % (20.5-51.5); MEAN CORPUSCULAR HEMOGLOBIN 27.7 uug (23.8-33.4); MEAN CORPUSCULAR HGB CONC 32 g/dL (32.5-36.3); MEAN CORPUSCULAR VOLUME 86.1 fL (73.0-96.2); MONOCYTES % (AUTO) 9.3 % (0.0-11.0); NEUTROPHILS # (AUTO) 8.2 K/uL (1.8-8.9); NEUTROPHILS % (AUTO) 78.9 % (38.5-71.5); PLATELET COUNT (AUTO) 176 K/uL (152-348); WHITE BLOOD COUNT (AUTO) 10.4 K/uL (3.6-10.2)
[2020-02-14 06:17] LABS: ABG BASE EXCESS 8.2 mmol/L; ABG HCO3 36.5 mmol/L; ABG PCO2 71.9 mmHg (35.0-45.0); ABG PH 7.323 (7.350-7.450); ABG PO2 96.2 mmHg (75.0-100.0); ABG SITE RIGHT RADIAL; ABG TOTAL HEMOGLOBIN 11.6 G/dL (13.5-18.0); COHb 1.4 % (0.5-1.5); MetHb 0.3 % (0.0-1.5); VENT MODE Nasal Cannula
--- NOTE | 2020-02-14 07:45 | NUR ---
Pulmonary services Dr. Shukla in the unit, full report given to Dr. Shukla. See order history for new orders. Dr. Shukla at bedside discussing plan of care with patient.
[2020-02-14] MEDS: LEVOTHYROXINE SODIUM 50 MCG TABLET PO SCH (08:15)
[2020-02-14] MEDS: ACETAzolamide SODIUM 500 MG VIAL IV SCH (08:16)
[2020-02-14] MEDS: VENLAFAXINE XR 37.5 MG CAP.SR.24H PO SCH (08:19)
[2020-02-14] MEDS: DONEPEZIL 10 MG TABLET PO SCH (08:19)
[2020-02-14] MEDS: FINASTERIDE 5 MG TABLET PO SCH (08:20)
[2020-02-14] MEDS: POTASSIUM CHLORIDE 10 MEQ TAB.PRT.SR PO SCH ×2 (08:20→17:06)
[2020-02-14] MEDS: PANTOPRAZOLE SODIUM 40 MG TABLET.DR PO SCH (08:20)
[2020-02-14] MEDS: TERAZOSIN 5 MG CAPSULE PO SCH ×2 (08:20→20:08)
--- NOTE | 2020-02-14 09:30 | NUR ---
Attending physician Dr. Wild in the unit, full report given to Dr. Wild. See order history for new orders. Dr. wild at bedside assessing patient, an discussing plan of care.
[2020-02-14] MEDS: MORPHINE SULFATE 2 MG/1 ML DISP.SYRIN IV PRN (09:51)
[2020-02-14] MEDS: ONDANSETRON 4 MG/2 ML VIAL IV PRN (11:03)
[2020-02-14] MEDS: DOPamine IV DRIP 400 MG/250ML 250 ML IV PRN (14:13)
--- NOTE | 2020-02-14 15:30 | NUR ---
Neurology services Dr. Choudhary in the unit, full report given. See order history for new orders. Dr. Choudhary at bedside assessing and discussing plan of care with patient.
[2020-02-14] MEDS: WARFARIN SODIUM 7.5 MG TABLET PO SCH (17:00)
--- NOTE | 2020-02-14 19:52 | NUR ---
Patient on Dopamine; notified PARVEZ Pham; held Hytrin. Will confirm Hytrin with PMD in AM.
[2020-02-14] MEDS: SIMVASTATIN 40 MG TABLET PO SCH (20:03)
[2020-02-14] MEDS: ALPRAZOLAM 0.5 MG TABLET PO PRN (20:03)
[2020-02-14] MEDS: ACETAMINOPHEN 325 MG TABLET PO PRN (20:03)
[2020-02-15] VITALS (32 sets, daily range): BP systolic 86–146; BP diastolic 43–87
[2020-02-15] MEDS: LEVALBUTEROL HCL NEB 0.63 MG/3 ML NEBU NEB SCH ×4 (00:51→19:22)
[2020-02-15] MEDS: IPRATROPIUM BROMIDE 0.5 MG/2.5 ML NEBU NEB SCH ×4 (00:51→19:22)
[2020-02-15 05:47] LABS: BASOPHILS # (AUTO) 0.1 K/uL (0.0-8.0); EOSINOPHILS # (AUTO) 0.3 K/uL (0.0-0.7); EOSINOPHILS % (AUTO) 2.8 % (0.0-7.0); HEMATOCRIT 33.4 % (36.7-47.1); HEMOGLOBIN 10.8 g/dL (12.5-16.3); LYMPHOCYTES # (AUTO) 1.1 K/uL (20.0-40.0); LYMPHOCYTES % (AUTO) 12.4 % (20.5-51.5); MEAN CORPUSCULAR HEMOGLOBIN 27.8 uug (23.8-33.4); MEAN CORPUSCULAR HGB CONC 32 g/dL (32.5-36.3); MEAN CORPUSCULAR VOLUME 85.9 fL (73.0-96.2); MONOCYTES # (AUTO) 1.1 K/uL (2.0-10.0); MONOCYTES % (AUTO) 11.8 % (0.0-11.0); NEUTROPHILS # (AUTO) 6.5 K/uL (1.8-8.9); PLATELET COUNT (AUTO) 222 K/uL (152-348); RED BLOOD CELL COUNT(AUTO) 3.88 MIL/uL (4.06-5.63); WHITE BLOOD COUNT (AUTO) 9.1 K/uL (3.6-10.2)
[2020-02-15 05:57] LABS: MAGNESIUM 2.3 mg/dL (1.8-2.4); PHOSPHOROUS 2.2 mg/dL (2.5-4.9); POTASSIUM 3.6 mmol/L (3.5-5.1)
[2020-02-15] MEDS: LEVOTHYROXINE SODIUM 50 MCG TABLET PO SCH (08:29)
[2020-02-15] MEDS: ACETAzolamide SODIUM 500 MG VIAL IV SCH (08:30)
[2020-02-15] MEDS: DONEPEZIL 10 MG TABLET PO SCH (08:30)
[2020-02-15] MEDS: TERAZOSIN 5 MG CAPSULE PO SCH ×2 (08:34→19:29)
[2020-02-15] MEDS: POTASSIUM CHLORIDE 10 MEQ TAB.PRT.SR PO SCH ×2 (08:34→17:18)
[2020-02-15] MEDS: FINASTERIDE 5 MG TABLET PO SCH (08:34)
[2020-02-15] MEDS: PANTOPRAZOLE SODIUM 40 MG TABLET.DR PO SCH (08:34)
[2020-02-15] MEDS: VENLAFAXINE XR 37.5 MG CAP.SR.24H PO SCH (08:34)
--- NOTE | 2020-02-15 08:40 | NUR ---
Pulmonary services Dr. Mena in the unit, full report given to Dr. Mena. See order history for new orders. Dr Mena at bedside assessing and discussing plan of care.
--- NOTE | 2020-02-15 09:30 | NUR ---
Attending Dr. Gardner in the unit, full report given to Dr. Gardner. See order history for new orders. Dr. Gardner at bedside assessing and discussing plan of care with patient.
[2020-02-15] MEDS: MORPHINE SULFATE 2 MG/1 ML DISP.SYRIN IV PRN (10:52)
[2020-02-15] MEDS ORDERED: NEUTRA PHOS PACKET PO ONE (15:00)
--- NOTE | 2020-02-15 16:39 | NUR ---
Cardiology services Dr. Hernández in the unit, full report given to Dr. Hernández see order history for new orders. Dr. Hernández at bedside assessing patient and discussing plan of care with patient.
[2020-02-15] MEDS: WARFARIN SODIUM 7.5 MG TABLET PO SCH (17:20)
[2020-02-15] MEDS: ALPRAZOLAM 0.5 MG TABLET PO PRN ×2 (17:33→22:54)
--- NOTE | 2020-02-15 19:30 | NUR ---
Con't hold Hytrin / B/P concerns; AM nurse discussed with .
[2020-02-15] MEDS: SIMVASTATIN 40 MG TABLET PO SCH (20:15)
[2020-02-15] MEDS: ACETAMINOPHEN 325 MG TABLET PO PRN (22:54)
--- NOTE | 2020-02-15 23:00 | NUR ---
Dr Groves telephoned us / update.
[2020-02-16] VITALS (24 sets, daily range): BP systolic 106–148; BP diastolic 47–125
[2020-02-16] MEDS: LEVALBUTEROL HCL NEB 0.63 MG/3 ML NEBU NEB SCH ×4 (01:03→19:38)
[2020-02-16] MEDS: IPRATROPIUM BROMIDE 0.5 MG/2.5 ML NEBU NEB SCH ×4 (01:03→19:38)
[2020-02-16] MEDS: ACETAMINOPHEN 325 MG TABLET PO PRN ×3 (05:18→20:09)
[2020-02-16 05:39] LABS: BASOPHILS % (AUTO) 0.5 % (0.0-2.0); EOSINOPHILS # (AUTO) 0.2 K/uL (0.0-0.7); EOSINOPHILS % (AUTO) 3.1 % (0.0-7.0); HEMATOCRIT 35.4 % (36.7-47.1); HEMOGLOBIN 11.3 g/dL (12.5-16.3); LYMPHOCYTES # (AUTO) 0.9 K/uL (20.0-40.0); LYMPHOCYTES % (AUTO) 10.5 % (20.5-51.5); MEAN CORPUSCULAR HEMOGLOBIN 27.5 uug (23.8-33.4); MEAN CORPUSCULAR HGB CONC 32 g/dL (32.5-36.3); MEAN CORPUSCULAR VOLUME 86.5 fL (73.0-96.2); MONOCYTES # (AUTO) 1.2 K/uL (2.0-10.0); MONOCYTES % (AUTO) 14.8 % (0.0-11.0); NEUTROPHILS # (AUTO) 5.7 K/uL (1.8-8.9); NEUTROPHILS % (AUTO) 71.1 % (38.5-71.5); PLATELET COUNT (AUTO) 224 K/uL (152-348); RED BLOOD CELL COUNT(AUTO) 4.09 MIL/uL (4.06-5.63); WHITE BLOOD COUNT (AUTO) 8.1 K/uL (3.6-10.2)
[2020-02-16 05:47] LABS: CREATININE 0.9 mg/dL (0.6-1.3); POTASSIUM 3.7 mmol/L (3.5-5.1)
[2020-02-16 06:06] LABS: MAGNESIUM 2.2 mg/dL (1.8-2.4); PHOSPHOROUS 2.6 mg/dL (2.5-4.9)
[2020-02-16] MEDS: LEVOTHYROXINE SODIUM 50 MCG TABLET PO SCH (07:51)
[2020-02-16] MEDS: FINASTERIDE 5 MG TABLET PO SCH (08:00)
[2020-02-16] MEDS: ACETAzolamide SODIUM 500 MG VIAL IV SCH (08:00)
[2020-02-16] MEDS: DONEPEZIL 10 MG TABLET PO SCH (08:00)
[2020-02-16] MEDS: POTASSIUM CHLORIDE 10 MEQ TAB.PRT.SR PO SCH ×2 (08:00→16:24)
[2020-02-16] MEDS: PANTOPRAZOLE SODIUM 40 MG TABLET.DR PO SCH (08:01)
[2020-02-16] MEDS: VENLAFAXINE XR 37.5 MG CAP.SR.24H PO SCH (08:01)
[2020-02-16] MEDS: TERAZOSIN 5 MG CAPSULE PO SCH ×2 (08:01→19:17)
--- NOTE | 2020-02-16 08:57 | NUR ---
Neurology services, Dr. Alexander in the unit to see and examine patient, report given, orders to continue with care plan received.
--- NOTE | 2020-02-16 09:30 | NUR ---
Attending physician Dr. Gardner in the unit to see and examine patient, report given, and orders to continue with care plan received.
--- NOTE | 2020-02-16 10:00 | NUR ---
At this time a call from pt's daughter and DPOA Kumar Vásquez and she was updated on care plan.
--- NOTE | 2020-02-16 13:00 | NUR ---
Pulmonary services, DR. Mena in the unit to see and examine patient, report given no new orders received.
--- NOTE | 2020-02-16 13:14 | NUR ---
A call to plugger worker/human services case manager Emmanuel Flaca to informed her of Kumar Devante's request to give her a call as well as a call from attending Dr. Gardner to discuss care plan in details. As stated by . Flaca social insurance adviser she'll call pt's daughter.
[2020-02-16] MEDS: WARFARIN SODIUM 7.5 MG TABLET PO SCH (16:30)
[2020-02-16] MEDS: ALPRAZOLAM 0.5 MG TABLET PO PRN (20:09)
[2020-02-16] MEDS: SIMVASTATIN 40 MG TABLET PO SCH (20:10)
--- NOTE | 2020-02-16 20:10 | NUR ---
Dr. Groves telephoned us / update.
[2020-02-16] MEDS: Z GUARD REMEDY PASTE 57 GM TUBE TOP SCH (20:12)
[2020-02-16] MEDS: MORPHINE SULFATE 2 MG/1 ML DISP.SYRIN IV PRN (23:41)
[2020-02-17] VITALS (10 sets, daily range): BP systolic 94–141; BP diastolic 48–77
[2020-02-17] MEDS: IPRATROPIUM BROMIDE 0.5 MG/2.5 ML NEBU NEB SCH ×2 (00:34→07:37)
[2020-02-17] MEDS: LEVALBUTEROL HCL NEB 0.63 MG/3 ML NEBU NEB SCH ×2 (00:35→07:37)
[2020-02-17] MEDS: ACETAMINOPHEN 325 MG TABLET PO PRN (03:40)
[2020-02-17] MEDS: ALPRAZOLAM 0.5 MG TABLET PO PRN (03:40)
[2020-02-17] MEDS: LEVOTHYROXINE SODIUM 50 MCG TABLET PO SCH (05:15)
[2020-02-17 05:16] LABS: BASOPHILS % (AUTO) 0.4 % (0.0-2.0); EOSINOPHILS # (AUTO) 0.2 K/uL (0.0-0.7); EOSINOPHILS % (AUTO) 2.5 % (0.0-7.0); HEMOGLOBIN 11.5 g/dL (12.5-16.3); LYMPHOCYTES # (AUTO) 0.8 K/uL (20.0-40.0); LYMPHOCYTES % (AUTO) 9.4 % (20.5-51.5); MEAN CORPUSCULAR HEMOGLOBIN 27.6 uug (23.8-33.4); MEAN CORPUSCULAR HGB CONC 32 g/dL (32.5-36.3); MONOCYTES # (AUTO) 1.2 K/uL (2.0-10.0); MONOCYTES % (AUTO) 13.1 % (0.0-11.0); NEUTROPHILS # (AUTO) 6.7 K/uL (1.8-8.9); NEUTROPHILS % (AUTO) 74.6 % (38.5-71.5); PLATELET COUNT (AUTO) 209 K/uL (152-348); RED BLOOD CELL COUNT(AUTO) 4.18 MIL/uL (4.06-5.63)
[2020-02-17 05:26] LABS: CREATININE 0.9 mg/dL (0.6-1.3); MAGNESIUM 2.2 mg/dL (1.8-2.4); PHOSPHOROUS 3.3 mg/dL (2.5-4.9); POTASSIUM 3.7 mmol/L (3.5-5.1)
[2020-02-17] MEDS: MORPHINE SULFATE 2 MG/1 ML DISP.SYRIN IV PRN (05:45)
--- NOTE | 2020-02-17 07:00 | NUR ---
Patient emotional & tearful this shift; see eMar / max PRN's given.
[2020-02-17] MEDS ORDERED: LOPERAMIDE HCL 2 MG CAPSULE PO PRN (07:45)
--- NOTE | 2020-02-17 07:58 | NUR ---
Pulmonary services, Dr. Shukla in the unit to see and examine patient, report given. See order hx.
[2020-02-17] MEDS: FINASTERIDE 5 MG TABLET PO SCH (08:07)
[2020-02-17] MEDS: POTASSIUM CHLORIDE 10 MEQ TAB.PRT.SR PO SCH (08:07)
[2020-02-17] MEDS: ACETAzolamide SODIUM 500 MG VIAL IV SCH (08:07)
[2020-02-17] MEDS: PANTOPRAZOLE SODIUM 40 MG TABLET.DR PO SCH (08:07)
[2020-02-17] MEDS: DONEPEZIL 10 MG TABLET PO SCH (08:08)
[2020-02-17] MEDS: VENLAFAXINE XR 37.5 MG CAP.SR.24H PO SCH (08:08)
[2020-02-17] MEDS: TERAZOSIN 5 MG CAPSULE PO SCH (08:11)
[2020-02-17] MEDS: Z GUARD REMEDY PASTE 57 GM TUBE TOP SCH (08:12)
[2020-02-17] MEDS ORDERED: HYDR-4384 PO (09:30)
[2020-02-17] MEDS ORDERED: FLUO20CA36 PO (09:38)
--- NOTE | 2020-02-17 12:15 | NUR ---
Telephone report given to rn. Napoles at [facility].
--- NOTE | 2020-02-17 13:01 | NUR ---
Patient pick via ambulance to be taken to [facility]. Report given to medical transporter. picc line dcd. pt's vitals stable hr 83, sbp of 109/52, saturation of 93% on 2LNC. DCd instructions given to patient, who understood but unable to signs documentation due to weakness.
== END 2020-02-17 13:09 | DRG 189 ==
LOC: TELE-TD3 12:19 → TELE3 12:44 → CCU 02-11 15:53
PROVIDERS: ADMIT Internal Medicine; ATTEND Internal Medicine
DX: J96.21 Acute and chronic respiratory failure with hypoxia (principal); E43 Unspecified severe protein-calorie malnutrition; I50.33 Acute on chronic diastolic (congestive) heart failure; I48.92 Unspecified atrial flutter; D68.69 Other thrombophilia; J44.1 Chronic obstructive pulmonary disease with (acute) exacerbation; J98.11 Atelectasis; I11.0 Hypertensive heart disease with heart failure; J96.22 Acute and chronic respiratory failure with hypercapnia; I48.0 Paroxysmal atrial fibrillation; E03.9 Hypothyroidism, unspecified; D63.8 Anemia in other chronic diseases classified elsewhere; E88.09 Other disorders of plasma-protein metabolism, not elsewhere classified; E87.6 Hypokalemia; F41.9 Anxiety disorder, unspecified; G47.33 Obstructive sleep apnea (adult) (pediatric); I25.10 Atherosclerotic heart disease of native coronary artery without angina pectoris; I27.20 Pulmonary hypertension, unspecified; K21.9 Gastro-esophageal reflux disease without esophagitis; Z66 Do not resuscitate; K44.9 Diaphragmatic hernia without obstruction or gangrene; N20.0 Calculus of kidney; Z86.73 Personal history of transient ischemic attack (TIA), and cerebral infarction without residual deficits; Z95.1 Presence of aortocoronary bypass graft; Z95.2 Presence of prosthetic heart valve; Z95.5 Presence of coronary angioplasty implant and graft; N40.0 Benign prostatic hyperplasia without lower urinary tract symptoms; F32.9 Major depressive disorder, single episode, unspecified; I05.0 Rheumatic mitral stenosis; Z85.118 Personal history of other malignant neoplasm of bronchus and lung; K76.89 Other specified diseases of liver; I95.9 Hypotension, unspecified; M62.50 Muscle wasting and atrophy, not elsewhere classified, unspecified site; Z68.26 Body mass index [BMI] 26.0-26.9, adult; R47.81 Slurred speech; R00.1 Bradycardia, unspecified; R51 Headache; R94.8 Abnormal results of function studies of other organs and systems; Z85.71 Personal history of Hodgkin lymphoma; R53.1 Weakness
CPT/HCPCS: 36415; 36600; 70030-TC; 71045; 76604; 82785; 83735; 84100; 84443; 84550; 85025; 85610; 93005; 94640; 94664; G0378; J0461; J1120; J1265; J1650; J1940; J2270; J2405; J3480; J3590; J7040; J7614